=== PATIENT | female | born 1950 ===

== ENCOUNTER 2025-01-18 12:45 | Inpatient (IN) | payer OTHER ==
[~2025-01-18] VITALS: Ht 121.9 cm; Wt 53.5 kg
[2025-01-18] MEDS ORDERED: ECOTRIN81 MG PO (14:14)
[2025-01-18] MEDS ORDERED: PEPCID AC20 MG PO (14:15)
[2025-01-18] MEDS ORDERED: PRILOSEC OTC20 MG PO (14:15)
[2025-01-18] MEDS ORDERED: CRESTOR40 MG (14:15)
[2025-01-18] MEDS ORDERED: DICY20TA PO (14:16)
[2025-01-18 15:44] LABS: INR 1.21
[2025-01-23] MEDS ORDERED: METRONIDAZOLE/SODIUM CHLORIDE 500 MG/100 ML PIGGYBACK IV ONE (08:20)
[2025-01-23] MEDS ORDERED: CEFTRIAXONE SODIUM 2,000 MG VIAL ONE (08:20)
[2025-01-23] MEDS ORDERED: BUPIVACAINE HCL/MPF 0.5% 30ML VIAL ONE (08:20)
[2025-01-23] MEDS ORDERED: PHYTONADIONE 10 MG/ML AMPUL ONE (09:17)
[2025-01-23] MEDS ORDERED: LIDOCAINE HCL 1%/EPINEPHRINE 20ML VIAL IJ ONE (10:15)
[2025-01-23] MEDS ORDERED: SUGAMMADEX SODIUM 200 MG/2 ML VIAL IV ONE (11:15)
[2025-01-23] MEDS ORDERED: ONDANSETRON HCL 2 MG/ML VIAL ONE (11:54)
[2025-01-23] MEDS ORDERED: ONDANSETRON HCL 2 MG/ML VIAL IV ONE ×2 (12:00)
[2025-01-23] MEDS ORDERED: MORPHINE SULFATE 4 MG/ML VIAL IV ONE ×5 (12:15→18:35)
[2025-01-23] MEDS ORDERED: RINGERS SOLUTION,LACTATED 1,000 ML IV SCH (13:30)
[2025-01-23] MEDS ORDERED: ONDANSETRON HCL 2 MG/ML VIAL IV PRN (13:30)
[2025-01-23] MEDS ORDERED: DEXTROSE 50 % IN WATER 0.5 G/ML DISP.SYRIN IV PRN (13:30)
[2025-01-23] MEDS ORDERED: OxyCODONE HCL 5 MG TABLET (ROXICODONE) PO PRN (13:30)
[2025-01-23] MEDS ORDERED: MORPHINE SULFATE 4 MG/ML CARTRIDGE IV PRN (13:30)
[2025-01-23] MEDS ORDERED: ACETAMINOPHEN 500 MG GEL..CAP PO SCH (14:00)
[2025-01-23] MEDS ORDERED: ENALAPRILAT DIHYDRATE 1.25 MG/ML VIAL IV ONE ×3 (14:12→14:20)
[2025-01-23] MEDS ORDERED: FAMOTIDINE/PF 20 MG/2 ML VIAL ONE (14:12)
[2025-01-23] MEDS ORDERED: FAMOTIDINE/PF 20 MG/2 ML VIAL IV ONE (14:20)
[2025-01-23] MEDS ORDERED: ENALAPRILAT DIHYDRATE 1.25 MG/ML VIAL IV PRN (14:30)
[2025-01-23] MEDS ORDERED: HYOSCYAMINE SULFATE 0.125 MG TAB.SUBL SL SCH (17:00)
[2025-01-23] MEDS ORDERED: GABAPENTIN 300 MG CAPSULE PO SCH (17:00)
[2025-01-23] MEDS ORDERED: POLYETHYLENE GLYCOL 3350 17 GM BLIST.PACK PO SCH (17:00)
[2025-01-23] MEDS ORDERED: FUROsemide 20 MG/2 ML VIAL IV ONE (18:30)
[2025-01-23] MEDS ORDERED: CELECOXIB 200 MG CAPSULE PO SCH (21:00)
[2025-01-23] MEDS ORDERED: FAMOTIDINE/PF 20 MG/2 ML VIAL IV PUSH SCH (21:00)
[2025-01-24 00:38] VITALS: BP 127/71; O2SAT 94
[2025-01-24 07:37] LABS: HEMATOCRIT 37.9 % (36.0-45.00); HEMOGLOBIN 12.2 g/dL (12.0-15.00); MEAN CELL VOLUME 89.2 fL (80.00-100.00); MEAN CORPUSCULAR HEMOGLOBIN 28.7 pg (27.00-32.0); MEAN CORPUSCULAR HGB CONC 32.2 g/dl (32.0-36.0); PLATELET COUNT 221 K/uL (150-450); RED BLOOD COUNT 4.25 M/uL (4.00-6.00); RED CELL DISTRIBUTION WIDTH 14.5 % (11.5-14.5)
[2025-01-24 08:00] VITALS: BP 93/50; O2SAT 98
[2025-01-24 08:37] LABS: ALBUMIN 3.1 gm/dL (3.4-5.0); CALCIUM 8.6 mg/dL (8.5-10.1); CREATININE SERUM 0.87 mg/dL (0.55-1.02); GFR 63.65; MAGNESIUM 1.5 mg/dL (1.8-2.4); PHOSPHOROUS 3.7 mg/dL (2.5-4.9); POTASSIUM 4.19 mEq/L (3.5-5.1)
[2025-01-24] MEDS ORDERED: LACTOBACILLUS ACIDOPHILUS 1 CAP CAP PO SCH (09:00)
[2025-01-24] MEDS ORDERED: MAGNESIUM SULFATE IN WATER 50 ML IV NR (09:30)
[2025-01-24] MEDS ORDERED: PATIENTS OWN MEDICATION (MEDICAMENTO EN PISO) PO SCH (17:00)
[2025-01-24] MEDS ORDERED: ENOXAPARIN SODIUM 40 MG/0.4 ML SYRINGE SUBCUTANEO SCH (17:00)
[2025-01-24 17:58] VITALS: BP 104/58; O2SAT 91
[2025-01-25 01:04] VITALS: BP 105/49; O2SAT 97
[2025-01-25 08:00] VITALS: BP 118/58; O2SAT 98
[2025-01-25] MEDS ORDERED: ENOXAPARIN SODIUM 40 MG/0.4 ML SYRINGE SUBCUTANEO SCH (09:00)
[2025-01-25] MEDS ORDERED: CHOLESTYRAMINE/ASPARTAME LIGHT 4 G/PKT PACKET PO STA (09:07)
[2025-01-25 17:00] VITALS: BP 97/57; O2SAT 99
[2025-01-25 17:07] LABS: HEMATOCRIT 30.5 % (36.0-45.00); HEMOGLOBIN 10.3 g/dL (12.0-15.00); MEAN CELL VOLUME 88.8 fL (80.00-100.00); MEAN CORPUSCULAR HEMOGLOBIN 29.9 pg (27.00-32.0); MEAN CORPUSCULAR HGB CONC 33.7 g/dl (32.0-36.0); PLATELET COUNT 169 K/uL (150-450); RED BLOOD COUNT 3.44 M/uL (4.00-6.00); RED CELL DISTRIBUTION WIDTH 14.6 % (11.5-14.5)
[2025-01-25 17:33] LABS: CALCIUM 8.2 mg/dL (8.5-10.1); CREATININE SERUM 0.88 mg/dL (0.55-1.02); GFR 62.81; MAGNESIUM 2.1 mg/dL (1.8-2.4)
[2025-01-25 21:17] LABS: POTASSIUM 3.63 mEq/L (3.5-5.1)
[2025-01-26 01:10] VITALS: BP 108/65; O2SAT 98
[2025-01-26 07:14] LABS: HEMATOCRIT 29.8 % (36.0-45.00); HEMOGLOBIN 10.1 g/dL (12.0-15.00); MEAN CORPUSCULAR HEMOGLOBIN 30.3 pg (27.00-32.0); MEAN CORPUSCULAR HGB CONC 34.1 g/dl (32.0-36.0); PLATELET COUNT 163 K/uL (150-450); RED BLOOD COUNT 3.34 M/uL (4.00-6.00); RED CELL DISTRIBUTION WIDTH 14.7 % (11.5-14.5)
[2025-01-26] MEDS ORDERED: INTESTINEX680 M1 PO (07:39)
[2025-01-26] MEDS ORDERED: NEURONTIN300 MG PO (07:39)
[2025-01-26] MEDS ORDERED: CELECOXIB200 MG PO (07:39)
[2025-01-26 07:49] LABS: CALCIUM 8.3 mg/dL (8.5-10.1); CREATININE SERUM 0.85 mg/dL (0.55-1.02); GFR 65.38; MAGNESIUM 1.9 mg/dL (1.8-2.4); PHOSPHOROUS 3.1 mg/dL (2.5-4.9); POTASSIUM 4.13 mEq/L (3.5-5.1)
[2025-01-26 08:19] VITALS: BP 101/50; O2SAT 100
== END 2025-01-26 09:46 | disposition home or self-care (01) | DRG 331 ==
LOC: SURH 01-23 05:45 → O/R 01-23 05:45 → SURH 01-23 08:45
PROVIDERS: Internal Medicine Geriatric Medicine; ADMIT Surgery; ATTEND Surgery
PROC: 0DBP4ZZ Excision of Rectum, Percutaneous Endoscopic Approach (ICD-10-PCS; 2025-01-23)
PROC: 0DNW4ZZ Release Peritoneum, Percutaneous Endoscopic Approach (ICD-10-PCS; 2025-01-23)
PROC: 0DJD8ZZ Inspection of Lower Intestinal Tract, Via Natural or Artificial Opening Endoscopic (ICD-10-PCS; 2025-01-23)
PROC: 0DTN4ZZ Resection of Sigmoid Colon, Percutaneous Endoscopic Approach (ICD-10-PCS; principal; 2025-01-23 08:45)
DX: K57.32 Diverticulitis of large intestine without perforation or abscess without bleeding (principal); K59.02 Outlet dysfunction constipation; K62.4 Stenosis of anus and rectum; N73.6 Female pelvic peritoneal adhesions (postinfective); N99.4 Postprocedural pelvic peritoneal adhesions